=== PATIENT | male | born 1945 | race Caucasian/White ===

== ENCOUNTER 2024-07-18 11:38 | Emergency (ER) | payer MEDICARE, OTHER ==
[~2024-07-18] VITALS: Ht 180.3 cm; Wt 99.8 kg
[~2024-07-18 11:38] MED LIST: ACEB200 PO; Diovan320 MG PO; ENTA200 PO; ESOM20 PO; HYDR1TAB94 PO; LEVCAR10 PO; MELO7.5 PO; TRIHYD5075 PO
[2024-07-18] MEDS ORDERED: Apixaban 5 MG Tab PO ONE (15:35)
[2024-07-18] MEDS ORDERED: ELIQUIS5 M9 PO (15:38)
[2024-07-18 16:00] VITALS: BP 147/72
== END 2024-07-18 16:08 | disposition home or self-care (01) ==
LOC: ER 11:38
DX: I82.621 Acute embolism and thrombosis of deep veins of right upper extremity (principal); Z87.891 Personal history of nicotine dependence; Z79.899 Other long term (current) drug therapy
CPT/HCPCS: 93971; 99283-25; A9270

== ENCOUNTER 2025-08-29 06:08 | Day surgery (SDC) | payer MEDICARE, OTHER ==
[~2025-08-29] VITALS: Ht 180.3 cm; Wt 103.5 kg
[~2025-08-29 06:08] MED LIST changes: +ELIQUIS5 M9 PO
[2025-08-29] MEDS ORDERED: CeFAZolin Sodium 2,000 MG VIAL ONE (06:23)
[2025-08-29] MEDS ORDERED: Bupivacaine 0.5% W/EPI 1:200000 SDV 30 ML Vial ONE (06:54)
[2025-08-29] MEDS ORDERED: PROP10 PO (07:02)
[2025-08-29] MEDS ORDERED: RISPERIDONE1 MG/1 ML PO (07:05)
[2025-08-29] MEDS ORDERED: FentaNYL Citrate 50 MCG/ML 2 ML Injection ONE (07:05)
[2025-08-29] MEDS ORDERED: Rocuronium Bromide 10 MG/ML 5ML Injection IV ONE (07:06)
[2025-08-29] MEDS ORDERED: ELIQUIS2.5 MG PO (07:06)
[2025-08-29] MEDS ORDERED: Ondansetron HCl 2 MG / ML 2ML Vial ONE (07:06)
[2025-08-29] MEDS ORDERED: Dexamethasone Sod Phos 10 MG/ML 1ML VIAL ONE (07:06)
[2025-08-29] MEDS ORDERED: Vitamin B-12100 MCG PO (07:07)
[2025-08-29] MEDS ORDERED: ALLO100 (07:07)
[2025-08-29] MEDS ORDERED: PREG50 PO (07:08)
[2025-08-29] MEDS ORDERED: PANT40 (07:09)
[2025-08-29] MEDS ORDERED: CALCIUM 500 MG1 EAC2 PO (07:10)
[2025-08-29] MEDS ORDERED: MIRT15ST PO (07:11)
[2025-08-29] MEDS ORDERED: Bupivacaine 0.5% HCl 5 MG/ML 30MLVIAL INJ ONE (07:46)
[2025-08-29 08:02] VITALS: BP 147/59
--- NOTE | 2025-08-29 08:03 | NUR ---
08/29/25 0803 Suellen David PT DENIES DIZZINESS/NAUSEA/PAIN AT THIS TIME.
== END 2025-08-29 08:39 | disposition home or self-care (01) ==
LOC: ORSCSDS 06:08
PROVIDERS: Podiatrist Foot & Ankle Surgery
PROC: 0Y6R0Z0 Detachment at Right 2nd Toe, Complete, Open Approach (ICD-10-PCS; principal; 2025-08-29 07:30)
DX: M86.671 Other chronic osteomyelitis, right ankle and foot (principal); I10 Essential (primary) hypertension; G20.A1 Parkinson's disease without dyskinesia, without mention of fluctuations; F02.80 Dementia in other diseases classified elsewhere, unspecified severity, without behavioral disturbance, psychotic disturbance, mood disturbance, and anxiety; M10.9 Gout, unspecified; K21.9 Gastro-esophageal reflux disease without esophagitis; E66.9 Obesity, unspecified; Z68.31 Body mass index [BMI] 31.0-31.9, adult; Z79.01 Long term (current) use of anticoagulants; Z79.899 Other long term (current) drug therapy
CPT/HCPCS: 88305; A6253; J0690; J1100; J2405; J2704; J3010; J7120

== ENCOUNTER 2025-09-04 15:53 | Emergency (ER) | payer MEDICARE, OTHER ==
[~2025-09-04] VITALS: Ht 180.3 cm; Wt 103.0 kg
[~2025-09-04 15:53] MED LIST changes: +ALLO100; +CALCIUM 500 MG1 EAC2 PO; +ELIQUIS2.5 MG PO; +MIRT15ST PO; +PANT40; +PREG50 PO; +PROP10 PO; +RISPERIDONE1 MG/1 ML PO; +Vitamin B-12100 MCG PO
[2025-09-04 16:16] VITALS: BP 132/56
== END 2025-09-04 19:05 | disposition left against medical advice (07) ==
LOC: ER 15:53
DX: M79.621 Pain in right upper arm (principal)
CPT/HCPCS: 93971; 99283-25